=== PATIENT | female | born 1975 | race Caucasian/White ===

== ENCOUNTER 2022-03-09 11:17 | Emergency (ER) | payer BC, OTHER ==
[2022-03-09 11:26] VITALS: BMI 25.4
[2022-03-09] MEDS ORDERED: BEBTELOVIMAB (EUA) 175 MG/2 ML VIAL IVPUSH ONE (12:06)
[2022-03-09 15:05] VITALS: BP 127/83; PULSE 67; TEMP 97.6
== END 2022-03-09 15:13 | disposition home or self-care (01) ==
LOC: JER 11:17
PROC: 3E033NZ Introduction of Analgesics, Hypnotics, Sedatives into Peripheral Vein, Percutaneous Approach (ICD-10-PCS; principal; 2022-03-09)
DX: U07.1 COVID-19 (principal)
CPT/HCPCS: 99284-25; M0222; Q0222